=== PATIENT | male | born 1950 ===

== ENCOUNTER 2020-12-05 05:00 | Day surgery (SDC) | payer OTHER ==
[~2020-12-05] VITALS: Ht 177.8 cm; Wt 81.6 kg
== END 2020-12-05 14:40 | disposition home or self-care (01) ==
LOC: CIR.AMB 05:00
PROVIDERS: ATTEND Specialist
DX: K40.90 Unilateral inguinal hernia, without obstruction or gangrene, not specified as recurrent (principal); Z20.822 Contact with and (suspected) exposure to COVID-19; D17.6 Benign lipomatous neoplasm of spermatic cord